=== PATIENT | female | born 1945 | race Caucasian/White ===

== ENCOUNTER 2017-12-07 10:02 | Outpatient (CLI) | payer OTHER | END 2017-12-07 19:41 | disposition home or self-care (01) | LOC: SMA 10:02 | PROVIDERS: ATTEND Family Medicine | PROC: BH02ZZZ Plain Radiography of Bilateral Breasts (ICD-10-PCS; principal; 2017-12-07) | PROC: 8E0WXBZ Computer Assisted Procedure of Trunk Region (ICD-10-PCS; 2017-12-07) | DX: Z12.31 Encounter for screening mammogram for malignant neoplasm of breast (principal) | CPT/HCPCS: 77067 ==

== ENCOUNTER 2019-06-11 08:54 | Outpatient (CLI) | payer OTHER | END 2019-06-11 21:03 | disposition home or self-care (01) | LOC: SMA 08:54 | PROVIDERS: ATTEND Family Medicine | DX: Z12.31 Encounter for screening mammogram for malignant neoplasm of breast (principal) | CPT/HCPCS: 77067 ==

== ENCOUNTER 2020-07-22 08:24 | Outpatient (CLI) | payer OTHER | END 2020-07-22 20:31 | disposition home or self-care (01) | LOC: SMA 08:24 | PROVIDERS: ATTEND Family Medicine | DX: Z12.31 Encounter for screening mammogram for malignant neoplasm of breast (principal) | CPT/HCPCS: 77067 ==